=== PATIENT | male | born 2000 | race Caucasian/White ===

== ENCOUNTER 2019-09-15 19:24 | Emergency (ER) | payer OTHER, BC ==
[2019-09-15] MEDS ORDERED: Ketorolac 60 MG/2 ML SDV IM ONE (20:00)
--- NOTE | 2019-09-15 20:05 | EDM.PDOC ---
ED HPI GENERAL MEDICAL PROBLEM - General Chief Complaint: Lower Extremity Injury/Pain Stated Complaint: FELL BROUGHT IN BY EMS Time Seen by Provider: 09/15/19 19:55 - History of Present Illness INITIAL COMMENTS - FREE TEXT/NARRATIVE: HISTORY AND PHYSICAL: History of present illness: The patient is a 19-year-old healthy man who was at work when he slipped and twisted his leg falling and says that his kneecap went out to the side and then it popped back in. He arrives via EMS with complaints of pain to his knee. He did not receive any pain medications in route. The patient did not hit his head pass out or blackout and has no head neck or back pain and no other extremity complaints abdominal complaints and has no nausea or vomiting. He had a normal day prior to this and was not lightheaded or dizzy but just misstepped. He says he is not sure but he may have had a prior injury with a "crack in the bone" but does not recall. He has no distal numbness or tingling and has no distal tib-fib ankle foot or toe pain and no proximal thigh or hip pain. Review of systems: As per history of present illness and below otherwise all systems reviewed and negative. Past medical history: As per history of present illness and as reviewed below otherwise noncontributory. Surgical history: As per history of present illness and as reviewed below otherwise noncontributory. Social history: No reported history of drug or alcohol abuse. Family history: As per history of present illness and as reviewed below otherwise noncontributory. Physical exam: General: Well-developed well-nourished overweight man who is nontoxic and vital signs are noted by me. HEENT: Atraumatic, normocephalic, pupils reactive, negative for conjunctival pallor or scleral icterus, mucous membranes moist, throat clear, neck supple, nontender, trachea midline. There are no scalp defects or deformities and no midline step-offs tenderness defects of the cervical spine Lungs: Clear to auscultation, breath sounds equal bilaterally, chest nontender. Heart: S1S2, regular, negative for clicks, rubs, or JVD. Abdomen: Soft, nondistended, nontender. Negative for masses or hepatosplenomegaly. Negative for costovertebral tenderness. Pelvis: Stable nontender. Genitourinary: Deferred. Rectal: Deferred. Extremities: Atraumatic and full range of motion of all extremities with the exception of the right knee where there is mild tenderness to palpation and soft tissue swelling/suprapatellar effusion is appreciated. The patella appears to be in normal anatomic alignment and does not have any defects and there is no crepitus. There is no proximal tib-fib tenderness and no distal leg ankle or foot tenderness defects or deformities and no proximal thigh hip or pelvis tenderness defects or deformities., negative for cords or calf pain. Neurovascular unremarkable. Neuro: Awake, alert, oriented. Cranial nerves II through XII unremarkable. Cerebellum unremarkable. Motor and sensory unremarkable throughout. Exam nonfocal. Diagnostics: X-ray right knee Therapeutics: Toradol IM, knee Derek and crutches knee immobilizer 2034: Case was discussed with the on-call orthopedic surgeon Dr. Toney who says that the patient only needs an Derek bandage and crutches and no knee immobilizer and to follow-up with him in clinic next week on Thursday. We will place his name on a follow-up. 2052: Dr Toney aware of XRays and I have sent pictures for his review. He feels now the patient should be a new mobilizer with an Derek. Patient is aware that I have sent films to the orthopedic surgeon and of this change in care plan. Impression: Knee injury right Definitive disposition and diagnosis as appropriate pending reevaluation and review of above. Treatments SOUND RECORDIST: Reports: Splint(s) R knee Pain Score (Numeric/FACES): 2 - Related Data Allergies Allergy/AdvReac Type Severity Reaction Status Date / Time Penicillins Allergy Cannot Verified 09/15/19 19:41 Remember Home Meds: Home Meds Methylphenidate HCl [Methylphenidate] 100 gm MC TID 09/15/19 [History] Sertraline [Zoloft] 100 mg PO DAILY 09/15/19 [History] Review of Systems - Review of Systems Review Of Systems: Comprehensive ROS is negative, except as noted in HPI. ED EXAM, GENERAL - Physical Exam Exam: See Below (See dictation) Course - Vital Signs Last Recorded V/S: Last Vital Signs Temp 35.9 C 09/15/19 19:35 Pulse 102 H 09/15/19 19:35 Resp 19 09/15/19 19:35 BP 125/100 H 09/15/19 19:35 Pulse Ox 98 09/15/19 19:35 - Orders/Labs/Meds Orders: Active Orders 24 hr Category Date Time Status DME for Discharge [COMM] Stat Oth 09/15/19 21:00 Ordered Meds: Medications Discontinued Medications Generic Name Dose Route Start Last Admin Trade Name Marquise PRN Reason Stop Dose Admin Ketorolac Tromethamine 60 mg 09/15/19 20:00 09/15/19 20:10 Toradol IM 09/15/19 20:01 60 mg ONETIME ONE Administration Departure - Departure Time of Disposition: 21:02 Disposition: Home, Self-Care 01 Condition: Good Clinical Impression: Knee injury Qualifiers: Encounter type: initial encounter Laterality: right Qualified Code(s): S89.91XA - Unspecified injury of right lower leg, initial encounter - Discharge Information Referrals: Tushar Johnson MD [Primary Care Provider] - Forms: ED Department Discharge Additional Instructions: The following information is given to patients seen in the emergency department who are being discharged to home. This information is to outline your options for follow-up care. We provide all patients seen in our emergency department with a follow-up referral. The need for follow-up, as well as the timing and circumstances, are variable depending upon the specifics of your emergency department visit. If you don't have a primary care physician on staff, we will provide you with a referral. We always advise you to contact your personal physician following an emergency department visit to inform them of the circumstance of the visit and for follow-up with them and/or the need for any referrals to a consulting specialist. The emergency department will also refer you to a specialist when appropriate. This referral assures that you have the opportunity for followup care with a specialist. All of these measure are taken in an effort to provide you with optimal care, which includes your followup. Under all circumstances we always encourage you to contact your private physician who remains a resource for coordinating your care. When calling for followup care, please make the office aware that this follow-up is from your recent emergency room visit. If for any reason you are refused follow-up, please contact the [facility] emergency department at and ask to speak to the emergency department charge nurse. [facility] Specialty Care - Orthopedic Clinic Professional Building [address] [place] [address], [address] [place] [address] Patient elevate the area as much as possible and use [id number] ibuprofen 800 mg every 8 hours for pain and add Tylenol as you choose. You have been given a prescription for tramadol for breakthrough pain but only take that while you are at home. Do not weight-bear and use the Derek and immobilizer at all times but remove or release at sleep times. Please call and schedule a follow-up appointment in orthopedics clinic for next Thursday for reevaluation and further care. Return to ER as needed and as discussed Sepsis Event Note - Evaluation Sepsis Screening Result: No Definite Risk - Focused Exam Vital Signs: Vital Signs Temp Pulse Resp BP Pulse Ox 09/15/19 19:35 35.9 C 102 H 19 125/100 H 98 Date Exam was Performed: 09/15/19 Time Exam was Performed: 21:02 - My Orders Last 24 Hours: My Active Orders 09/15/19 21:00 DME for Discharge [COMM] Stat - Assessment/Plan Last 24 Hours: My Active Orders 09/15/19 21:00 DME for Discharge [COMM] Stat
--- NOTE | 2019-09-15 20:42 | CR ---
Right knee: AP and lateral views of the right knee were obtained as well as sunrise patellar view. Patellar is shifted in a lateral direction. Joint effusion is seen. There is haziness within the patellar ligament. Medial and lateral joint compartments are maintained in height. No fracture or other bony abnormality is appreciated. Impression: 1. Patella is shifted in a lateral direction with joint effusion. 2. Haziness within the patellar ligament and difficult to completely exclude patellar injury. Please correlate with physical exam. If any clinical questions remain, MRI would be helpful. Diagnostic code #3 Study was dictated in [place] Standard Time
== END 2019-09-15 21:45 | disposition home or self-care (01) ==
LOC: MW.ED 19:24
DX: S89.91XA Unspecified injury of right lower leg, initial encounter (principal); Z88.0 Allergy status to penicillin; W01.0XXA Fall on same level from slipping, tripping and stumbling without subsequent striking against object, initial encounter; X50.1XXA Overexertion from prolonged static or awkward postures, initial encounter; Y92.89 Other specified places as the place of occurrence of the external cause; Y99.0 Civilian activity done for income or pay
CPT/HCPCS: 73562; 96372; 99284; J1885; 99283

== ENCOUNTER 2021-10-11 12:44 | Emergency (ER) | payer OTHER, BC | END 2021-10-11 14:08 | disposition home or self-care (01) | LOC: MW.ED 12:44 | DX: S83.91XA Sprain of unspecified site of right knee, initial encounter (principal); M23.91 Unspecified internal derangement of right knee; Z88.0 Allergy status to penicillin; X50.1XXA Overexertion from prolonged static or awkward postures, initial encounter | CPT/HCPCS: 73562-26-RT; 73562-RT; 99282; 99283 ==